=== PATIENT | female | born 1995 | race Caucasian/White ===

== ENCOUNTER 2018-09-08 14:00 | Emergency (ER) | payer OTHER ==
[2018-09-08] MEDS: morphine 4 MG/ML VIAL IV (15:10)
[2018-09-08] MEDS: ONDANSETRON 4 MG INJ IV (15:11)
[2018-09-08] MEDS: SOD CHLORIDE 0.9% 1,000 ML IV (15:11)
[2018-09-08 15:14] LABS: WHITE BLOOD COUNT 13.6 10^3/ul (4.8-10.8)
[2018-09-08 15:14] LABS: ABNORMAL IP MESSAGE 1; HEMATOCRIT 32.8 % (37.0-47.0); HEMOGLOBIN 10.8 g/dl (12.0-16.0); MEAN CORPUSCULAR HGB CONC 32.9 g/dl (32.0-37.0); MEAN CORPUSCULAR VOLUME 78.8 fl (72.0-104.0); PLATELET COUNT 107 10^3/UL (140-415); RED BLOOD COUNT 4.16 10^6/ul (4.20-5.40); RED CELL DISTRIBUTION WIDTH 15.5 % (11.5-14.5)
[2018-09-08 15:20] LABS: ADD MAN DIFF? YES; POSITIVE DIFF @See below
[2018-09-08 15:32] LABS: ADD UMIC YES; ALANINE AMINOTRANSFERASE 20 IU/L (13-69); ALBUMIN 3.8 g/dl (3.3-4.9); ALBUMIN/GLOBULIN RATIO 1.15; ALKALINE PHOSPHATASE 75 IU/L (42-121); ANION GAP 14 (5-13); ASPARTATE AMINO TRANSFERASE 19 IU/L (15-46); BILIRUBIN,INDIRECT 0.4 mg/dl (0-1.1); BILIRUBIN,TOTAL 0.4 mg/dl (0.2-1.3); BLOOD UREA NITROGEN 15 mg/dl (7-20); CALCIUM 8.6 mg/dl (8.4-10.2); CARBON DIOXIDE 20 mmol/L (21-31); CHLORIDE 101 mmol/L (97-110); CREATININE 0.93 mg/dl (0.44-1.00); Estimated GFR > 60 mL/min (>60); GLUCOSE 92 mg/dl (70-220); LIPASE 91 U/L (23-300); POTASSIUM 3.4 mmol/L (3.5-5.1); SODIUM 135 mmol/L (135-144); TOTAL PROTEIN 7.1 g/dl (6.1-8.1); UR AMORPHOUS CRYSTAL FEW /HPF (NONE SEEN); UR ASCORBIC ACID NEGATIVE (NEGATIVE); UR BACTERIA FEW /HPF (NONE SEEN); UR BILIRUBIN (Dip) NEGATIVE (NEGATIVE); UR BLOOD (Dip) 2+ mg/dL (NEGATIVE); UR CLARITY SLIGHTLY CLOUDY (CLEAR); UR COLOR YELLOW (YELLOW); UR GLUCOSE (Dip) NEGATIVE (NEGATIVE); UR KETONES (Dip) 2+ mg/dL (NEGATIVE); UR LEUKOCYTE ESTERASE (Dip) 1+ Leu/ul (NEGATIVE); UR NITRITE (Dip) NEGATIVE (NEGATIVE); UR RBC 18 /HPF (0-5); UR SPECIFIC GRAVITY (Dip) 1.015 (1.003-1.030); UR SQUAMOUS EPITHELIAL CELL MODERATE /HPF (FEW); UR TOTAL PROTEIN (Dip) 2+ mg/dl (NEGATIVE); UR UROBILINOGEN (Dip) 1+ mg/dL (NEGATIVE); UR WBC 31 /HPF (0-5)
[2018-09-08 16:09] LABS: BAND NEUTROPHILS #M 2.4 10^3/ul (0.0-0.6); BAND NEUTROPHILS % (M) 18 % (0-10); ERYTHROBLAST% (NRBC) (M) 4 % (0-0); LYMPHOCYTES #M 0.4 10^3/ul (0.8-2.9); LYMPHOCYTES % (M) 3 % (18-55); MONOCYTE #M 1.7 10^3/ul (0.3-0.9); MONOCYTES % (M) 13 % (0-13); PLATELET ESTIMATE NORMAL; SEG NEUT #M 9.3 10^3/ul (1.6-7.5); SEGMENTED NEUTROPHILS (M) % 66 % (30-74)
[2018-09-08] MEDS: CEFTRIAXONE 1 GM/50 ML (PMX) 50 ML IVPB (16:13)
== END 2018-09-08 17:25 | disposition home or self-care (01) ==
LOC: FTE 14:00
DX: N39.0 Urinary tract infection, site not specified (principal); N20.0 Calculus of kidney; D69.6 Thrombocytopenia, unspecified; D64.9 Anemia, unspecified; J45.909 Unspecified asthma, uncomplicated
CPT/HCPCS: 36415; 74176; 80053; 81001; 81025; 83690; 85025; 87086; 96361; 96374; 96375; 99285-25

== ENCOUNTER 2019-02-24 13:34 | Outpatient (CLI) | payer OTHER, MEDICAID ==
[2019-02-24 14:48] LABS: ADD UMIC NO; UR ASCORBIC ACID NEGATIVE (NEGATIVE); UR BILIRUBIN (Dip) NEGATIVE (NEGATIVE); UR BLOOD (Dip) NEGATIVE (NEGATIVE); UR CLARITY CLEAR (CLEAR); UR COLOR STRAW (YELLOW); UR GLUCOSE (Dip) NEGATIVE (NEGATIVE); UR KETONES (Dip) TRACE mg/dL (NEGATIVE); UR LEUKOCYTE ESTERASE (Dip) NEGATIVE Leu/ul (NEGATIVE); UR NITRITE (Dip) NEGATIVE (NEGATIVE); UR SPECIFIC GRAVITY (Dip) 1.006 (1.003-1.030); UR TOTAL PROTEIN (Dip) NEGATIVE (NEGATIVE); UR UROBILINOGEN (Dip) NEGATIVE (NEGATIVE)
== END 2019-02-24 15:35 | disposition home or self-care (01) ==
LOC: OBT 13:34 → L-D 13:34 → OBT 15:35
DX: O26.892 Other specified pregnancy related conditions, second trimester (principal); Z3A.21 21 weeks gestation of pregnancy; K59.00 Constipation, unspecified
CPT/HCPCS: 76815; 76817; 81003

== ENCOUNTER 2019-05-20 15:48 | Inpatient (IN) | payer OTHER ==
[2019-05-20] MEDS: LACTATED RINGER'S 1,000 ML IV ×2 (19:58→22:26)
[2019-05-20] MEDS ORDERED: ACETAMINOPHEN 325 MG TAB PO (20:00)
[2019-05-20] MEDS: BETAMET NA PHOS/AC(6 MG/ML) 2 ML INJ SYG IM (20:33)
[2019-05-21] MEDS: LACTATED RINGER'S 1,000 ML IV ×2 (06:02→15:37)
[2019-05-21] MEDS: FERROUS SULFATE (EC) 325 MG TAB PO (09:19)
[2019-05-21] MEDS: PRENATAL VITAMIN PO (09:19)
[2019-05-21] MEDS: BETAMET NA PHOS/AC(6 MG/ML) 2 ML INJ SYG IM (20:43)
== END 2019-05-21 21:23 | disposition home or self-care (01) | DRG 833 ==
LOC: OBT 15:48 → L-D 15:51 → OBT 18:40 → L-D 18:40
DX: O36.5930 Maternal care for other known or suspected poor fetal growth, third trimester, not applicable or unspecified (principal); O62.9 Abnormality of forces of labor, unspecified; Z3A.34 34 weeks gestation of pregnancy
CPT/HCPCS: 76815; 76818; 76820

== ENCOUNTER 2019-06-11 10:23 | Outpatient (CLI) | payer OTHER | END 2019-06-11 12:12 | disposition home or self-care (01) | LOC: OBT 10:23 → L-D 10:25 → OBT 12:12 | DX: O36.5930 Maternal care for other known or suspected poor fetal growth, third trimester, not applicable or unspecified (principal); Z3A.37 37 weeks gestation of pregnancy | CPT/HCPCS: 76818 ==

== ENCOUNTER 2019-06-14 12:18 | Outpatient (CLI) | payer OTHER ==
[2019-06-14] MEDS ORDERED: MAGNESIUM SULFATE 20 GM/500 ML 500 ML IV (14:19)
[2019-06-14] MEDS ORDERED: LACTATED RINGER'S 1,000 ML IV (14:19)
[2019-06-14] MEDS ORDERED: BETAMET NA PHOS/AC(6 MG/ML) 2 ML INJ SYG IM (14:30)
[2019-06-14] MEDS ORDERED: MAGNESIUM SULFATE 4 GM/100 ML 100 ML IV (14:30)
== END 2019-06-14 14:19 | disposition home or self-care (01) ==
LOC: OBT 12:18 → L-D 12:18 → OBT 14:19
DX: O36.5930 Maternal care for other known or suspected poor fetal growth, third trimester, not applicable or unspecified (principal); Z3A.37 37 weeks gestation of pregnancy
CPT/HCPCS: 76815; 76818